=== PATIENT | female | born 1935 | race Caucasian/White ===

== ENCOUNTER 2017-09-11 19:00 | Observation (INO) ==
[2017-09-11] MEDS ORDERED: FentaNYL 100 MCG/2 ML INJECTION IVP PRN (19:08)
[2017-09-11] MEDS ORDERED: ACETAMINOPHEN 500 MG TABLET PO ONE (19:09)
--- NOTE | 2017-09-11 19:12 | Emergency Department Report ---
Fall HPI - General Stated Complaint: lt hip/shoulder pain Time Seen by Provider: 09/11/17 19:03 Source: patient, EMS, RN notes reviewed Mode of arrival: EMS Limitations: no limitations - History of Present Illness HPI Narrative: Pt is at [facility] right hip fx, when she wandered out of her room and fell in the room across the boateng, onto her left side. Pain in left hip and left clavicle with crepitus laterally on clavicle exam by EMS. Given 50mcg Fentanyl en route to good pain control currently. no head injury - Related Data Home Medications Medication Instructions Recorded Confirmed Acetaminophen [Pain Relief] 1,000 mg PO DAILY 09/11/17 09/11/17 Aspirin [Adult Aspirin Regimen] 81 mg PO DAILY 09/11/17 09/11/17 Melatonin/Pyridoxine HCl (B6) 5 mg PO HS 09/11/17 09/11/17 [Melatonin 5 mg Tablet] Memantine [Namenda] 10 mg PO BID 09/11/17 09/11/17 Oxybutynin Chloride 5 mg PO BID 09/11/17 09/11/17 Potassium Chloride 10 meq PO DAILY 09/11/17 09/11/17 Rivastigmine Patch [Exelon Patch] 1 patch TD DAILY 09/11/17 09/11/17 Sertraline [Zoloft] 75 mg PO DAILY 09/11/17 09/11/17 Tramadol [Ultram] 50 mg PO BID 09/11/17 09/11/17 hydroCHLOROthiazide 12.5 mg PO DAILY 09/11/17 09/11/17 [Hydrochlorothiazide] Allergies Allergy/AdvReac Type Severity Reaction Status Date / Time acetaminophen [From [place]] Allergy Unknown Verified 09/11/17 19:14 hydrocodone [From [place]] Allergy Unknown Verified 09/11/17 19:14 pregabalin [From [place]] Allergy Unknown Verified 09/11/17 19:14 Review of Systems All systems: reviewed and negative except as stated 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 HTN PAIN R HIP FX Surgical History: HIP REPAIR - Social History Smoking status: Never smoker Substance use type: does not use Alcohol intake frequency: does not drink Physical Exam - Limitations Limitations: no limitations - General General appearance: alert - Normal Exams: Head:: Normocephalic without trauma Eyes:: Pupils are PERRLA w/ EOMI, No scleral icterus, irritation, or foreign bodies noted ENMT:: No facial trauma, nasal exudates, pharyngeal erythema, or exudates are noted Neck:: Full range of motion, without adenopathy, JVD, bruits or thyromegaly Chest/Respirations:: Clear all arellano, with good airflow, and symmetry bilaterally Cardiovascular:: Regular rate and rhythm, without murmur or gallop, Pulses 2+ all extremities, capillary refill, <2 seconds all extremities Abdomen:: Bowel sounds positive, soft, non-tender, non-distended, no hepatosplenomegaly, masses or bruits noted Lymphatic:: No lymphadenopathy, or lymphedema noted Integumentary:: No rashes, hives, or bruising noted, hair and nails, without abnormality Neurological:: Patient is alert, and oriented, cranial nerves, motor/sensory/ cerebellar, exams w/o gross deficits, to observation Psychiatric:: Patient exhibits, appropriate attention, emotion and affect - Extremities Exam Extremities exam: Present: other (MODERATE LEFT LATERAL HIP TENDERNESS WITHOUT DEFORMITY OR CREPITUS. LEFT CLAVICLE TENDERNESS AND CREPITUS LATERALLY. ) Course Vital Signs Temperature 98.1 F 09/11/17 19:00 Pulse Rate 85 09/11/17 19:00 Respiratory Rate 16 09/11/17 19:00 Blood Pressure 151/67 H 09/11/17 19:00 Pulse Oximetry 90 09/11/17 19:00 Temperature 98.1 F 09/11/17 19:00 Pulse Rate 85 09/11/17 19:00 Respiratory Rate 16 09/11/17 19:00 Blood Pressure 151/67 H 09/11/17 19:00 Pulse Oximetry 90 09/11/17 19:00 Fall - MDM Narrative Medical decision making narrative: Pt declines further meds at initial exam Given Tylenol, CT Head - normal Left Clavicle - fracture midshaft Left Hip - left superior and inferior pubic rami fractures. Discussed with Drs. Pearson and Milad. Will admit for pt/ot, pain control and assessment for placement back to full nursing care. Disposition Clinical Impression: Fracture of left superior pubic ramus Qualifiers: Encounter type: initial encounter Fracture type: closed Qualified Code(s): S32.512A - Fracture of superior rim of left pubis, initial encounter for closed fracture Closed left clavicular fracture Qualifiers: Encounter type: initial encounter Clavicle location: shaft Fracture alignment: nondisplaced Qualified Code(s): S42.025A - Nondisplaced fracture of shaft of left clavicle, initial encounter for closed fracture Disposition: [facility] Condition: Improved Prescriptions: No Action Tramadol [Ultram] 50 mg PO BID Sertraline [Zoloft] 75 mg PO DAILY Rivastigmine Patch [Exelon Patch] 1 patch TD DAILY Potassium Chloride 10 meq PO DAILY Memantine [Namenda] 10 mg PO BID Aspirin [Adult Aspirin Regimen] 81 mg PO DAILY Oxybutynin Chloride 5 mg PO BID hydroCHLOROthiazide [Hydrochlorothiazide] 12.5 mg PO DAILY Melatonin/Pyridoxine HCl (B6) [Melatonin 5 mg Tablet] 5 mg PO HS Acetaminophen [Pain Relief] 1,000 mg PO DAILY Referrals: Brisa Caro MD [Primary Care Provider] - - Seen By: physician
--- OUTSIDE RECORDS SUMMARY | 2017-09-11 19:20 | External Medical Summary | Referral Summary ---
:1935 Author Organization [facility] Address [address] [place] [address] Care Team Providers Name Role Phone Carrierais Brandon Leslie Primary Care Physician Encounter VC Date(s): 05/01/17 - 05/01/17 [facility] [address] [place] [address]- [phone] Discharge Disposition: 01-Home or Self Care Attending Physician: Kirt Armando MD Admitting Physician: Kirt Armando MD Referring Physician: Edouard Khan Problem List Condition Effective Dates Status Health Status Informant Anxiety disorder(Confirmed) Active Allergic rhinitis(Confirmed) Active Nail avulsion of toe(Confirmed) Active Breast cancer(Confirmed) Active Chicken pox(Confirmed) 1942 Active Depression(Confirmed) Active Dyslipidemia(Confirmed) Active Fatigue(Confirmed) Active Gout(Confirmed) Active Hay fever(Confirmed) Active L supraondylar humerus Active fracture(Confirmed) Hypertension(Confirmed) Active Low back pain(Confirmed) Active Osteoporosis(Confirmed) Active Alzheimers disease(Confirmed) Active Tibial plateau fracture(Confirmed) Active Allergies, Adverse Reactions, Alerts No Known Medication Allergies Medications Aspir 81 oral delayed release tablet 1 tabs, Oral, Daily, 0 Refill(s) Start Date: 02/24/14 Status: OrderedExelon 9.5 mg/24 hr transdermal film, extended release 1 patches, TransDermal, Daily, # 90 patches, 3 Refill(s), Pharmacy: [facility] Start Date: 04/26/16 Status: OrderedKlor-Con M20 oral tablet, extended release 20 mEq 1 tabs, Oral, Daily, # 90 tabs, 3 Refill(s), Pharmacy: [facility], Please sendto patient on 09-07-2015, 1 tabs Oral Daily Start Date: 07/17/16 Status: OrderedLyrica Oral, 0 Refill(s) Start Date: 04/26/17 Status: OrderedLyrica 150 mg oral capsule 150 mg 1 caps, Oral, BID, # 60 caps, 0 Refill(s) Start Date: 04/26/17 Status: OrderedNamenda 10 mg oral tablet 10 mg 1 tabs, Oral, BID, rx #: [id number], # 60 tabs, 3 Refill(s), Pharmacy: [facility], 1 tabs OralBID,Instr:rx #: [id number] Start Date: 03/06/17 Status: OrderedtraMADol 50 mg oral tablet 50 mg 1 tabs, Oral, BID, as needed for pain, # 45 tabs, 0 Refill(s), called to pharmacy (Rx) Start Date: 05/01/17 Stop Date: 05/20/17 Status: OrderedTylenol 325 mg oral capsule mg caps, Oral, TID, 0 Refill(s) Start Date: 09/25/16 Status: OrderedZoloft 50 mg oral tablet 50 mg 1 tabs, Oral, Daily, PLEASE DO INSURANCE OVERRIDE-PT ACCIDENTLY THREW PREVIOUS RX AWAY., # 90 tabs, 3 Refill(s), Pharmacy: [facility], Please send to patient on 09-07-2015, 1 tabs Oral Daily,Instr:PLEASE DO INSURANCE OVERRIDE... Start Date: 03/06/17 Status: Ordered Immunizations Given and Recorded Vaccine Date Status Refusal Reason influenza virus vaccine, inactivated 02/25/17 Given influenza virus vaccine, inactivated 03/26/16 Given influenza virus vaccine, inactivated 03/14/15 Given influenza virus vaccine, inactivated1 03/18/14 Recorded pneumococcal 13-valent conjugate vaccine 03/26/16 Given influenza virus vaccine, live 02/24/13 Given influenza virus vaccine, live 03/17/10 Given tetanus toxoid 06/23/01 Given 1Result Comment: [03/18/2014] See scanned document Procedures Procedure Date Related Diagnosis Body Site ORIF L dis Humerus, CT L Prox Tibia 04/07/09 Heart cath 2005 Colonoscopy1 R Breast Lumpectomy 1repeat 2015 Social History Social History Type Response Smoking Status Never smoker entered on: 02/24/14
[2017-09-11] MEDS ORDERED: NON-FORMULARY MEDICATION 1 EACH EACH (Oxybutynin Chloride [Oxybutynin Chloride] 5 MG) PO SCH (21:00)
[2017-09-11] MEDS ORDERED: ACETAMINOPHEN 325 MG TABLET PO PRN (21:08)
[2017-09-11] MEDS ORDERED: SENNA + DOCUSATE TABLET PO PRN (21:08)
[2017-09-11] MEDS ORDERED: HYDROCODONE/APAP 5mg/325mg TABLET PO PRN (21:08)
[2017-09-11 21:32] VITALS: BMI 23.0
[2017-09-11] MEDS ORDERED: HALOPERIDOL 5 MG/ML INJECTION IVP PRN (22:03)
--- NOTE | 2017-09-11 22:08 | History & Physical Report ---
History of Present Illness Date: 09/12/17 Chief complaint: fall HPI: The pt is a 82 yo who has been residing at [facility] for the past 3 months after a right hip fracture. The son and states that the pt has been getting more confused over the past month, especially around 5-8pm. She usually walks the halls and adjourning rooms thinking her neighbors from her old neighborhood are there without using her walker with her hands clasps behind her back. Tonight she did the same and fell landing on her left shoulder. The pt was unaccomanied by the staff at the unit. no LOC, no acute bleeding, no recent fevers or complaints . Review of Systems ROS unobtainable: due to mental status Past Medical History Medical History: Medical History (Last Updated 09/11/17 @ 22:08 by Earnest Stinson MD) Alzheimer disease Surgical History: HIP REPAIR Family History: Unable to Obtain - Social History Smoking status: Never smoker Alcohol intake frequency: does not drink Housing: [facility] Medications Home Medications Medication Instructions Recorded Confirmed Type Acetaminophen [Pain Relief] 1,000 mg PO DAILY 09/11/17 09/11/17 History Aspirin [Adult Aspirin Regimen] 81 mg PO DAILY 09/11/17 09/11/17 History Melatonin/Pyridoxine HCl (B6) 5 mg PO HS 09/11/17 09/11/17 History [Melatonin 5 mg Tablet] Memantine [Namenda] 10 mg PO BID 09/11/17 09/11/17 History Oxybutynin Chloride 5 mg PO BID 09/11/17 09/11/17 History Potassium Chloride 10 meq PO DAILY 09/11/17 09/11/17 History Rivastigmine Patch [Exelon Patch] 1 patch TD DAILY 09/11/17 09/11/17 History Sertraline [Zoloft] 75 mg PO DAILY 09/11/17 09/11/17 History Tramadol [Ultram] 50 mg PO BID 09/11/17 09/11/17 History hydroCHLOROthiazide 12.5 mg PO DAILY 09/11/17 09/11/17 History [Hydrochlorothiazide] Allergies Allergy/AdvReac Type Severity Reaction Status Date / Time acetaminophen [From [place]] Allergy Unknown Verified 09/11/17 19:14 hydrocodone [From [place]] Allergy Unknown Verified 09/11/17 19:14 pregabalin [From [place]] Allergy Unknown Verified 09/11/17 19:14 Exam Vital Signs: Temperature 98.3 F 09/11/17 21:47 Pulse Rate 77 09/11/17 21:47 Respiratory Rate 20 09/11/17 21:47 Blood Pressure 148/72 H 09/11/17 21:47 Pulse Oximetry 97 09/11/17 21:47 Height/Weight/BMI: Height 1.65 m Weight 62.7 kg Body Mass Index 23.0 - Constitutional Present: no acute distress, well nourished. Absent: cooperative - Routine HEENT Exam Head: Present: normocephalic, atraumatic - Routine Respiratory Exam Present: CTA bilaterally - Routine Cardiovascular Exam Present: RRR, no murmur - Routine Abdominal Exam Present: soft, normoactive bowel sounds, non tender - Routine Extremities Exam Comments: left shoulder immobilized with sling, bruising over the shoulder, unable to more legs. due to pain - Routine Skin Exam Present: intact, ecchymosis - Routine Neurological Exam Present: alert Results - Labs CBC & Chem 7: 09/12/17 04:14 09/12/17 04:14 Assessment and Plan (1) Alzheimer disease Current visit: Yes Status: Acute DVT Prophylaxis: SCD's GI Prophylaxis: Protonix Resuscitation Status: Do Not Resuscitate - Time spent with patient Coordination of Care: >50% of visit spent providing counseling/coordination of care - Physician Narrative Physician: Diana Salvador MD Narrative: Date: 09/12/17 Time: 1132 CC: pt fell at [place] sustaining left superior pubic rami fracture and left clavicular fracture. HPI: 82y/o female pt with dementia. She was seen by me this am. and son are present. The patient is only oriented to her 1st name. She's unable to tell me her last name, date or year. She's unable to me her birthday. She does not know where she is and is not know the circumstances of her being here. She seems quite surprised when we told her she fell and is in the hospital. and son both report that this is not new and has been worsening. They also reports she's worse in the evenings between 5 and 8 PM. The reports she has not been eating her evening meal but does well on the other 2 meals. She apparently has lost some weight. She currently resides at [facility] and has for the last 3 months for rehab after sustaining a right hip fracture. She usually walks the halls and into adjourning rooms thinking her neighbors from her old neighborhood are there, without using her walker with her hands clasps behind her back. On the night of admission she walked into an adjoining room and subsequently fell. The pt was unaccompanied by the staff at the unit. no LOC, no acute bleeding, no recent fevers or complaints. Currently she is wide-awake and appears fairly comfortable. She does complain of some hip pain and occasional left arm pain when moving. She denies feeling short of breath. She denies headache. She denies chest pain or pressure. She denies palpitations. She denies any nausea or vomiting. She denies any diarrhea or constipation. She denies any black tarry stools or blood in her stools. She denies any problems with urinating. She denies any problems with lower extremity edema. Keep in mind however she is very demented and her review of systems is likely unreliable. Past medical history: Current medications: Tylenol 1000 mg daily hydrochlorothiazide 12.5 mg daily melatonin 5 mg QHS Namenda 10 mg BID aspirin 81 mg daily oxybutynin 5 mg BID potassium 10 mEq his daily Exelon patch 9.5 mg daily Zoloft 75 mg daily tramadol 50 mg BID Allergies: Hydrocodone pregabalin Medical history: dementia hypertension urinary incontinence Surgical history: left hip and a prosthesis cataracts surgery Social history: lifetime non-smoker no alcohol lives in [place] family history: unknown per patient's . Review of systems: 14 point review of systems were reviewed and is negative except as noted history of present illness likely unreliable Physical exam: Gen: alert, oriented only to her 1st name , pleasant and converses Skin: warm and dry HEENT: NC/AT PERRL, EOMI, Sclera, lids and conjunctiva wnl, MMM, OP clear Neck: supple. No JVD, Carotids 2+ without bruits. Lungs: clear, No rales, rhonchi, wheezes. CV: regular. 2/6 murmur Abd: soft. NT/ND, +BS MS: No edema. Good strength and ROM right upper extremity. Bilateral lower extremities painful to move or to plantar flex, Dorsal flex Neuro: No focal deficit except for profound memory deficits Psy: normal mood and affect Assessment and plan: (1) Fracture of inferior pubic ramus and left clavicle Nonoperative care of pelvic fracture per orthopedic surgery As soon as she is capable of mobilizing we will obtain further films s/p weight bearing. Her clavicle fracture is going to be a limiting factor in her mobilization. Awaiting recommendations regarding the clavicle from orthodedic surgery. If no plan on surgical repair then she can probably go back to the NH today (2) Alzheimer disease Continue po meds once decision is made regarding surgery, currently she is NPO until that decision is made. (3) HTN On only HCTZ at home, not the best option for this age, will try low dose lisinopril instead. (4) Bacturia Cx pending would opt to treat due to her dementia and urinary incontinence, I am not sure she can relay symptoms (5) prophylaxis SCDs Spoke with Kirt Kiser and he states he has not spoken with Dr. Pearson yet but to go ahead and feed the patient and give her her meds as they will not be doing anything today. Hospital Course Summary Disclaimer: The visit summary below is not to be considered part of the above Progress Note.
[2017-09-11] MEDS: TRAMADOL 50 MG TABLET PO SCH (22:30)
[2017-09-11] MEDS: SALINE FLUSH 10ml SYRINGE IV PRN (23:27)
[2017-09-11] MEDS: MORPHINE SULFATE 4mg INJECTION IVP PRN (23:28)
[2017-09-12] MEDS ORDERED: FALL RISK - PHARMACY CONSULT MC ONE (00:55)
[2017-09-12] MEDS: SALINE FLUSH 10ml SYRINGE IV PRN ×3 (05:04→20:46)
[2017-09-12] MEDS: MORPHINE SULFATE 4mg INJECTION IVP PRN ×2 (05:04→12:12)
--- NOTE | 2017-09-12 07:52 | Orthopedic Consult Note ---
Orthopedic Consultation HPI - Consultation Info Consult Date: 09/12/17 Attending Physician: Romi Woodward MD Consult Reason: fracture (Left clavicle fracture, Left superior pubic rami fracture) - History of Present Illness Mrs. Mondragon is a pleasant 82 year old female with dementia. She is status post left hip endoprosthesis and is recovering at [facility]. Last night she wondered out of her room unattended and fell on her left side. She was evaluated in the ER by Dr. Swanson. A left superiorly displaced and shortened midshaft clavicle fracture was identified. In addition a left superior and inferior pubic rami fracture was seen. She was admitted under the care of the hospitalist team for pain control and Dr. Pearson was contacted for orthopedic care. She presently is confused and no family is present. She cannot provide any history and asks me "what did I do?". She locates pain in the left clavicle and left lateral hip. She is able to follow commands appropriately and responds with adequate answers to questions. Her left arm is in a sling. She describes pain with ROM, better with rest and pain medications. She denies numbness in the hand or feet, chest pain, abdominal pain, headache or change in vision or swallowing. Review of Systems - Constitutional Constitutional: Absent: headache(s) - EENT Eyes: Absent: blurry vision, change in vision Ears, nose, mouth, throat: Absent: headaches - Cardiovascular Cardiovascular: Absent: chest pain - Respiratory Respiratory: Absent: cough - Gastrointestinal Gastrointestinal: Absent: abdominal pain - Genitourinary Genitourinary Female: Present: pelvic pain (secondary to fracture) - Musculoskeletal Musculoskeletal: Present: joint swelling, limited range of motion - Neurological Neurological: Present: confusion (dementia). Absent: radicular pain - Psychiatric Psychiatric: Present: as per HPI [facility] Patient Stated Medical History Dementia Yes: [place] Cataracts Yes Other HEENT Yes: Glasses Hypertension Yes Hx Incontinence Yes Hx Urinary Tract Infection Yes Other Behavioral Health Yes: dementia Clinic Medical History (Last Updated 09/11/17 @ 22:08 by Earnest Stinson MD) Alzheimer disease (Acute Medical) Surgical History: Left hip endoprosthesis - Social History Smoking status: Never smoker Substance use type: does not use Alcohol intake frequency: does not drink Housing: shelter ([facility]) Household members: spouse Medications Home Medications Medication Instructions Recorded Confirmed Type Acetaminophen [Pain Relief] 1,000 mg PO DAILY 09/11/17 09/11/17 History Aspirin [Adult Aspirin Regimen] 81 mg PO DAILY 09/11/17 09/11/17 History Melatonin/Pyridoxine HCl (B6) 5 mg PO HS 09/11/17 09/11/17 History [Melatonin 5 mg Tablet] Memantine [Namenda] 10 mg PO BID 09/11/17 09/11/17 History Oxybutynin Chloride 5 mg PO BID 09/11/17 09/11/17 History Potassium Chloride 10 meq PO DAILY 09/11/17 09/11/17 History Rivastigmine Patch [Exelon Patch] 1 patch TD DAILY 09/11/17 09/11/17 History Sertraline [Zoloft] 75 mg PO DAILY 09/11/17 09/11/17 History Tramadol [Ultram] 50 mg PO BID 09/11/17 09/11/17 History hydroCHLOROthiazide 12.5 mg PO DAILY 09/11/17 09/11/17 History [Hydrochlorothiazide] Allergies Allergy/AdvReac Type Severity Reaction Status Date / Time acetaminophen [From [place]] Allergy Unknown Verified 09/11/17 19:14 hydrocodone [From [place]] Allergy Unknown Verified 09/11/17 19:14 pregabalin [From [place]] Allergy Unknown Verified 09/11/17 19:14 Exam - Constitutional Vital Signs: Temperature 98.0 F 09/12/17 07:41 Pulse Rate 83 09/12/17 07:41 Respiratory Rate 14 09/12/17 07:41 Blood Pressure 172/83 H 09/12/17 07:41 Pulse Oximetry 92 09/12/17 07:41 General: cooperative, no acute distress Nutritional Appearance: average body habitus Orientation: alert, confused - Psych Affect: normal Attitude: cooperative - RUE General: other (ecchymosis to right proximal humerus, TTP, but patient can move without pain.) Postoperative Appearance: extremity compartments are soft and nontender, neurovascullary intact to extremities Skin: no rashes or lesions noted, ecchymosis (right shoulder) Shoulder Range of Motion: within normal limits (on the right.) Elbow Range of Motion: within normal limits Neurological: no deficits, normal to light touch, no muscle atrophy Vascular: radial pulse within normal limits, ulnar pulse within normal limits - LUE General: other (creptius and pain midshaft left clavicle) Postoperative Appearance: extremity compartments are soft and nontender, neurovascullary intact to extremities Skin: no rashes or lesions noted, other ( intact skin over clavicle) Range of Motion: Left shoulder ROM limited in all planes secondary to clavicle pain. Neurological: no deficits, normal to light touch Vascular: radial pulse within normal limits, ulnar pulse within normal limits, capillary refill <2 seconds - LLE General: no obvious deformity Postoperative Appearance: surgical incision well healed, extremity compartments are soft and nontender, no pain with passive rotation of hip, neurovascullary intact to extremities Hip Palpation: Tender: lateral, greater trochanter Skin: no rashes or lesions noted Knee Range of Motion: within normal limits Hip Range of Motion: limited external and internal rotation Neurological: no deficits, normal to light touch Vascular: dorsalis pedis pulse within normal limits, tibialis posterior pulse within normal limits Left Lower Extremity Comments: Pain with AP and lateral compression of the pelvis. - Respiratory Respiratory Exam: non-labored - Cardiac Cardiovascular exam: pedal pulses intact - Abdominal GI/Abdominal Exam: soft - Labs Result Diagrams: 09/12/17 04:14 09/12/17 04:14 Abnormal lab results 09/12/17 09/12/17 Range/Units 04:14 04:14 WBC 12.2 H (4.5-11.0) T/MM3 Hgb 10.8 L (12-16) GM/DL Hct 34.4 L (36-46) % MCV 77.5 L (80-100) UM3 MCH 24.3 L (26-34) UUG Neut % (Auto) 82.1 H (33-66) % Lymph % (Auto) 8.5 L (23-45) % Neut # (Auto) 10.0 H (1.8-7.7) T/MM3 BUN 27.0 H (7-17) MG/DL BUN/Creatinine Ratio 27 H (6-26) RATIO Glucose 126 H (65-110) MG/DL H & H 09/12/17 Range/Units 04:14 Hgb 10.8 L (12-16) GM/DL Hct 34.4 L (36-46) % - Diagnostic results Shoulder x-ray: image reviewed Hip MRI: image reviewed Other Results: image reviewed (pelvis film reviewed. Superior rami fracture noted. S/P endoprosthesis. Old superior rami fracture near pubic symphasis. Inferior rami fracture.) Impression and Recommendation (1) Fracture of inferior pubic ramus Current visit: Yes Status: Acute Nonoperative care. As soon as she is capable of mobilizing we will obtain further films s/p weight bearing. Her clavicle fracture is going to be a limiting factor in her mobilization. (2) Alzheimer disease Current visit: Yes Status: Acute (3) Closed left clavicular fracture Current visit: Yes Qualifiers: Encounter type: initial encounter Clavicle location: shaft Fracture alignment: nondisplaced Qualified Code(s): S42.025A - Nondisplaced fracture of shaft of left clavicle, initial encounter for closed fracture Status: Acute Typically this would be best treated with ORIF. However, given her age and mentation post op compliance is questionable at best. Dr. Pearson and I will discuss options with the family when they are available. Sling for comfort in the meantime. (4) Fracture of left superior pubic ramus Current visit: Yes Qualifiers: Encounter type: initial encounter Fracture type: closed Qualified Code(s) : S32.512A - Fracture of superior rim of left pubis, initial encounter for closed fracture Status: Acute Nonoperative care. As soon as she is capable of mobilizing we will obtain further films s/p weight bearing. Her clavicle fracture is going to be a limiting factor in her mobilization. Hospital Course Summary Disclaimer: The visit summary below is not to be considered part of the above Progress Note.
--- NOTE | 2017-09-12 08:23 | XRay Report ---
Indication: fall, left clavicle fracture PROCEDURE: XR clavicle LT: Encounter: Initial Comparison: None Findings/ Impression: Closed posttraumatic mildly displaced fracture of the junction of the proximal two thirds and distal one third of the clavicle with inferior displacement of the distal fracture fragment by 3/4 shaft width and overriding of the fracture fragments by approximately 1 cm. No additional acute fracture or dislocation. .
--- NOTE | 2017-09-12 08:25 | XRay Report ---
Indication: fall, left hip pain PROCEDURE: XR pelvis w/ 2 view LT hip: Encounter: Initial Comparison: None Findings: Bony demineralization. There is a fracture of the left superior pubic ramus, proximally near the acetabulum and an additional buckle type fracture of the left aspect of the pubic symphysis. There is also a nondisplaced fracture of the midportion of the left inferior pubic ramus. Left femoral head prosthesis. No additional acute fracture. Degenerative change and scoliosis in the lower lumbar spine. Impression: Closed posttraumatic left superior and inferior pubic rami fractures. .
--- NOTE | 2017-09-12 08:26 | CT Scan Report ---
Indication: fall in NH with frail, elderly, memory loss PROCEDURE: CT head/brain wo con: Encounter: Initial Comparison: None Technique: Axial CT images through the head were performed without contrast. Iterative Reconstruction dose reducing technique was utilized. FINDINGS: Moderate atrophy. The ventricles are of normal size, shape, and configuration for the patient's age. Chronic bilateral basal ganglia lacunar infarcts. There is no evidence of acute intracranial hemorrhage, midline displacement, or mass effect. There are scattered areas of low attenuation in the white matter which most likely represent changes of chronic microvascular ischemia. The CT attenuation of the brain parenchyma is otherwise normal within the cerebellum, brain stem, and cerebral hemispheres. The tympanic cavities and mastoid air cells are free of appreciable disease. There are no definite fractures of the skull base, calvarium, or visualized portion of the midface. IMPRESSION: No CT evidence of acute traumatic intracranial injury. There is a preliminary report by [employer] radiologic. .
--- NOTE | 2017-09-12 09:32 | XRay Report ---
Indication: shoulder pain PROCEDURE: XR shoulder RT 2-3 views: Encounter: Initial Comparison: None Findings: There is no acute fracture, dislocation or malalignment identified. Impression: No acute osseous abnormality. .
[2017-09-12] MEDS ORDERED: LISINOPRIL 2.5 MG TABLET PO SCH (12:00)
[2017-09-12] MEDS: RIVASTIGMINE PATCH REMOVAL TD SCH (12:23)
[2017-09-12] MEDS: RIVASTIGMINE 9.5 MG/24 HR PATCH TD SCH (12:27)
[2017-09-12] MEDS: ASPIRIN *EC* 81 MG TABLET PO SCH (12:28)
[2017-09-12] MEDS: TRAMADOL 50 MG TABLET PO SCH ×2 (12:28→20:40)
[2017-09-12] MEDS: CIPROFLOXACIN 500 MG TABLET PO SCH ×2 (12:28→20:40)
[2017-09-12] MEDS: SERTRALINE 50 MG TABLET PO SCH (12:29)
[2017-09-12] MEDS ORDERED: LISINOPRIL 2.5 MG TABLET PO ONE (17:18)
[2017-09-13 08:12] VITALS: RESP 16
--- NOTE | 2017-09-13 08:20 | XRay Report ---
Indication: re eval fracture PROCEDURE: XR clavicle LT: Encounter: Initial Comparison: September 11, 2017 Findings/ Impression: Left clavicular fracture shows less overriding of the fracture fragments currently, now 5 to 6 mm with a similar degree of inferior displacement of the distal fracture fragment. No new fracture or dislocation. .
[2017-09-13] MEDS: TRAMADOL 50 MG TABLET PO SCH (09:00)
[2017-09-13] MEDS: CIPROFLOXACIN 500 MG TABLET PO SCH (09:00)
[2017-09-13] MEDS ORDERED: LISINOPRIL 5 MG TABLET PO SCH (09:00)
[2017-09-13] MEDS: ASPIRIN *EC* 81 MG TABLET PO SCH (09:02)
[2017-09-13] MEDS: SERTRALINE 50 MG TABLET PO SCH (09:03)
[2017-09-13] MEDS: RIVASTIGMINE 9.5 MG/24 HR PATCH TD SCH (09:04)
[2017-09-13] MEDS: RIVASTIGMINE PATCH REMOVAL TD SCH (10:08)
--- NOTE | 2017-09-13 10:35 | Discharge Summary ---
Discharge Information Date of admission: 09/11/17 20:29 Anticipated date of discharge: 09/13/17 Attending Physician: Diana Salvador MD Primary care physician: MD Brandon Mcfadden Consults: 09/11/17 21:08 Case Management Consult [CONS] Routine Reason For Exam: Physician Consult [CONS] Routine Consulting Provider: Jorge Pearson Reason For Exam: pelvic fracture Ordering Provider has Notified Np: Yes 09/12/17 11:04 Physician Consult [CONS] Routine Consulting Provider: Manjeet Pool Reason For Exam: CONT CARE Ordering Provider has Notified Np: Yes - Discharge Diagnosis (1) Alzheimer disease Status: Acute - Laboratory Labs: 09/13/17 04:13 09/13/17 06:51 - Microbiology Microbiology 09/12/17 07:01 Urine, Voided (Cc/notcc) Urine Culture - Preliminary No Growth After 1 Day - Radiology Radiology: Left XR clavicle 09/01/17 Impression: Closed posttraumatic mildly displaced fracture of the junction of the proximal two thirds and distal one third of the clavicle with inferior displacement of the distal fracture fragment by 3/4 shaft width and overriding of the fracture fragments by approximately 1 cm. No additional acute fracture or dislocation. CT head/brain wo con 09/11/17 IMPRESSION: No CT evidence of acute traumatic intracranial injury. XR pelvis w/ 2 view LT hip 09/11/17 Impression: Closed posttraumatic left superior and inferior pubic rami fractures. Shoulder X Ray 09/12/17 Impression: No acute osseous abnormality. History of Present Illness HPI: The pt is a 82 yo who has been residing at [facility] for the past 3 months after a right hip fracture. The son and states that the pt has been getting more confused over the past month, especially around 5-8pm. She usually walks the halls and adjourning rooms thinking her neighbors from her old neighborhood are there without using her walker with her hands clasps behind her back. Tonight she did the same and fell landing on her left shoulder. The pt was unaccomanied by the staff at the unit. no LOC, no acute bleeding, no recent fevers or complaints . Objective Vital signs: Temperature 98.7 F 09/13/17 08:00 Pulse Rate 73 09/13/17 08:00 Respiratory Rate 16 09/13/17 08:00 Blood Pressure 162/67 H 09/13/17 08:00 Pulse Oximetry 91 09/13/17 08:00 Height/Weight/BMI: Height 1.65 m Weight 61.9 kg Body Mass Index 23.0 Comments: Gen: alert, oriented only to her 1st name , pleasant and converses Skin: warm and dry HEENT: NC/AT PERRL, EOMI, Sclera, lids and conjunctiva wnl, MMM, OP clear Neck: supple. No JVD, Carotids 2+ without bruits. Lungs: clear, No rales, rhonchi, wheezes. CV: regular. 2/6 murmur Abd: soft. NT/ND, +BS MS: No edema. Good strength and ROM right upper extremity. Bilateral lower extremities painful to move or to plantar flex, Dorsal flex Neuro: No focal deficit except for profound memory deficits Psy: normal mood and affect Hospital Course This is a general summary of the patient's hospital course. For more details refer to the complete medical record. Hospital course: Ms. Mondragon was admitted from the [facility] after sustaining a fall and having a fractured left pubic rami and left clavicle. Surgery was consulted opted conservative management without surgery. She had no other issues. She is quite demented and is only oriented to her 1st name. She was felt to be stable to discharged back to her detention with more aggressive monitoring to prevent further ambulatory expeditions into neighboring rooms and subsequent falls. Time spent with patient: 25 - 35 minutes Discharge Plan - Discharge Disposition Discharge Date: 09/13/17 Disposition: 04 To [facility] Home/Facility *Condition: Improved Reason For Visit (Visit label in EMR): left pubic rami fracture,left clavicle shaft fract - Discharge Medications *Discharge Medications: New Rivastigmine Patch Removal [Exelon Patch Removal] 1 removal TD DAILY patch Senna + Docusate [Senna Plus Tablet] 1 tab PO BID PRN tablet PRN Reason: Constipation Ciprofloxacin [Cipro 500 mg] 500 mg PO Q12HR #5 tablet Oxybutynin IR [Ditropan] 5 mg PO BID tablet Continue Tramadol [Ultram] 50 mg PO BID Sertraline [Zoloft] 75 mg PO DAILY Rivastigmine Patch [Exelon Patch] 1 patch TD DAILY Potassium Chloride 10 meq PO DAILY Memantine [Namenda] 10 mg PO BID Aspirin [Adult Aspirin Regimen] 81 mg PO DAILY Oxybutynin Chloride 5 mg PO BID Melatonin/Pyridoxine HCl (B6) [Melatonin 5 mg Tablet] 5 mg PO HS Acetaminophen [Pain Relief] 1,000 mg PO DAILY Discontinued hydroCHLOROthiazide [Hydrochlorothiazide] 12.5 mg PO DAILY - Discharge Packet/Instructions *Diet: As previous *Activity: No weight bearing of the left arm *Pain Management/Treatment: Tylenol *Wound Care: N/A *Expected Signs/Symptoms: N/A *Notify Physician if: N/A *During Business Hours Contact: N/A *After Business Hours Contact: N/A *Pending Lab/Results: No Pending Lab - Referrals/Follow Up *Referrals/Follow Up: Lee Scott MD [Physician] - 09/24/17 10:00 am - Patient Handouts - Dismissal Complete Discharge Instructions are:: Complete Physician Narrative - Narrative Attestation Narrative: Date: 09/13/17 Time: [id number]
--- NOTE | 2017-09-13 10:56 | Extended Care Facility Orders ---
Admission Orders Admit to:: [facility] Allergies/Adverse Reactions: Allergies acetaminophen [From [place]] Allergy (Unknown, Verified 09/11/17 19:14) hydrocodone [From [place]] Allergy (Unknown, Verified 09/11/17 19:14) pregabalin [From [place]] Allergy (Unknown, Verified 09/11/17 19:14) Admitting Diagnosis: left pubic rami fracture,left clavicle shaft fract Admitting Physician: Diana Salvador MD Attending Physician: Diana Salvador MD Code Status: Do Not Resuscitate Anticiapted Length of Stay: greater than 30 days Rehab Potential: fair Rehab Prognosis: fair Diet: 09/11/17 Breakfast Regular Diet [DIET] Diet Modifications: May use Facility Protocol or Standing Orders: Yes May have flu vaccine: Yes Evaluations/Treatment: PT - Additional Information In Event of Arrest: Do Not Start CPR Resident is Aware of Diagnosis: Yes Referrals: Lee Scott MD [Physician] - 09/24/17 10:00 am
[2017-09-13 12:16] VITALS: BP 141/71; PULSE 77; TEMP 97.9; O2SAT 94
--- NOTE | 2017-09-13 13:55 | XRay Report ---
Indication: re evaluate pelvis fracture PROCEDURE: XR pelvis min 3V: Encounter: Initial Comparison: September 11, 2017 Findings/ Impression: Stable alignment of the left superior and inferior pubic ramus fractures. No new fracture. No dislocation. Bony demineralization. Left femoral head prosthesis. .
[2017-09-13] MEDS ORDERED: LISINOPRIL 2.5 MG TABLET PO ONE (17:18)
== END 2017-09-13 15:12 ==
LOC: ED 19:00 → SRG 19:00 → SUATTDRO 20:29 → SRG 21:25
PROVIDERS: ADMIT Internal Medicine; ATTEND Internal Medicine Cardiovascular Disease